=== PATIENT | female | born 1980 | race Hispanic/Latino ===

== ENCOUNTER 2017-04-16 12:51 | Emergency (ER) | payer OTHER ==
[2017-04-16 13:08] VITALS: BP 95/68; PULSE 73; RESP 16; TEMP 98; O2SAT 98
[2017-04-16] MEDS ORDERED: Albuterol-Ipratrop 3 mg / 0.5 (3 ml) UD INH STA ×2 (13:29→14:36)
[2017-04-16] MEDS ORDERED: Albuterol-Ipratrop 3 mg / 0.5 (3 ml) UD ONE ×2 (13:31→14:16)
--- NOTE | 2017-04-16 13:32 | ED PDOC ---
HPI: General Adult Time Seen by Provider: 04/16/17 13:09 Chief Complaint (Nursing): Flu-like Symptoms Chief Complaint (Provider): Flu-like Symptoms History Per: Patient History/Exam Limitations: no limitations Onset/Duration Of Symptoms: Days (x4) Current Symptoms Are (Timing): Still Present Additional Complaint(s): Spenser Jarrell is a 36 year old female with a history of asthma that presents to the ED with a chief complaint of fever, productive cough, and a burning sensation in her chest that she has been experiencing for the past four days. Patient reports that she last took Motrin at 5:00 AM this morning. Past Medical History Reviewed: Historical Data, Nursing Documentation, Vital Signs Vital Signs: Last Vital Signs Temp 98 F 04/16/17 13:03 Pulse 73 04/16/17 13:03 Resp 16 04/16/17 13:03 BP 95/68 L 04/16/17 13:03 Pulse Ox 98 04/16/17 13:36 - Medical History PMH: Asthma - Surgical History Surgical History: (x2) - Family History Family History: States: Unknown Family Hx - Home Medications Home Medications: Ambulatory Orders Medication Instructions Recorded Azithromycin 500 mg PO DAILY #3 tablet 12/11/15 Methylprednisolone [Medrol Dose 4 mg PO DAILY #21 mg 04/16/17 Pack (21 tabs)] Promethazine HCl/Codeine 5 ml PO HS #80 ml 04/16/17 [Prometh-Codein 6.25-10 mg/5 ml] - Allergies Allergies/Adverse Reactions: Allergies Allergy/AdvReac Type Severity Reaction Status Date / Time No Known Allergies Allergy Verified 04/16/17 13:03 Review of Systems Constitutional: Positive for: Fever Cardiovascular: Positive for: Other (burning sensation chest) Respiratory: Positive for: Cough (productive) Physical Exam - Reviewed Nursing Documentation Reviewed: Yes Vital Signs Reviewed: Yes - Physical Exam Appears: Positive for: Non-toxic, No Acute Distress Head Exam: Positive for: ATRAUMATIC, NORMOCEPHALIC Skin: Positive for: Normal Color, Warm Eye Exam: Positive for: Normal appearance, EOMI, PERRL ENT: Positive for: Normal ENT Inspection. Negative for: Pharyngeal Erythema Cardiovascular/Chest: Positive for: Regular Rate, Rhythm. Negative for: Murmur Respiratory: Positive for: Wheezing (mild expiratory wheezing). Negative for: Normal Breath Sounds Neurologic/Psych: Positive for: Alert, Oriented. Negative for: Motor/Sensory Deficits - ECG O2 Sat by Pulse Oximetry: 98 (RA) Pulse Ox Interpretation: Normal Medical Decision Making Medical Decision Making: Impression: Asthma Exacerbation/Fever Plan: * Chest X-Ray * Albuterol/Ipratropium 3 ml INH * Peak Flow Pre/Post Tx * Reevaluation * * ON r-eval, lungs CTA bilaterally and CXR: NAd, as read by ABEBE * * Administered Medrol dose pack and promethazine with codeine, advised to take meds as directed and follow up with PMD. Return to ED with nay concerns Scribe Attestation: Documented by Nicole Pennington, acting as a scribe for Carri Holt PA-C. Provider Scribe Attestation: All medical record entries made by the Scribe were at my direction and personally dictated by me. I have reviewed the chart and agree that the record accurately reflects my personal performance of the history, physical exam, medical decision making, and the department course for this patient. I have also personally directed, reviewed, and agree with the discharge instructions and disposition. Disposition - Clinical Impression Clinical Impression: Upper respiratory infection - Patient ED Disposition Is Patient to be Admitted: No - Disposition Disposition: Routine/Home Disposition Time: 15:26 Condition: STABLE Prescriptions: Methylprednisolone [Medrol Dose Pack (21 tabs)] 4 mg PO DAILY #21 mg Promethazine HCl/Codeine [Prometh-Codein 6.25-10 mg/5 ml] 5 ml PO HS #80 ml Instructions: Upper Respiratory Infection (ED) Forms: [employer] (Spanish) Print Language: NORWEGIAN
--- NOTE | 2017-04-16 15:23 | RAD ---
HISTORY: fever and cough COMPARISON: 05/28/2016 TECHNIQUE: Chest PA and lateral FINDINGS: LUNGS: No active pulmonary disease. PLEURA: No significant pleural effusion identified. No pneumothorax apparent. CARDIOVASCULAR: Normal. OSSEOUS STRUCTURES: No significant abnormalities. VISUALIZED UPPER ABDOMEN: Normal. OTHER FINDINGS: None. IMPRESSION: No active disease. No significant interval change compared to the prior examination(s).
== END 2017-04-16 15:51 | disposition home or self-care (01) ==
LOC: H.ER 12:51
DX: J06.9 Acute upper respiratory infection, unspecified (principal)